=== PATIENT | female | born 1985 | race African-American/Black ===

== ENCOUNTER 2016-12-19 22:25 | Emergency (ER) | payer OTHER ==
--- NOTE | ~2016-12-19 | CR63 ---
[facility] A Service of [facility] RADIOLOGY TEXT RESULTS PATIENT: JOEY MORALES LOCATION: CFTX : 89 UNIT #: [id number] AGE: [address]: Jorge Wahl MD SEX: F ORDER DR: [id number] [facility] [address] [place], [place] [address] [id number] E MR#: [id number] Acc #: [id number] NAME: JOEY MORALES : 1985 SEX: F STUDY DATE/TIME: 12/19/2016 22:13 UNIT: [facility] ROOM: STUDY DESCRIPTION: CR Chest 2 View Attending Physician: Jorge Wahl M.D. Ordering Physician: Jorge Wahl M.D. Primary Care Physician: [facility] MEDICAL IMAGING REPORT This report is preliminary unless electronic signature is present EXAM Chest x-ray 12/19 at 2213 INDICATIONS Shortness of air, cough and mid back pain for the last 3 days. History of smoking. COMPARISON 05/11/2007 FINDINGS PA and lateral examination of the chest upright shows a good expansion of the parenchyma with a normal distribution of the pulmonary vascularity. There is no indication of congestion, effusion, infiltrate, tumor, or nodular density. The pleural reflections and diaphragmatic contours are normal. The cardiac silhouette and mediastinal anatomy is within normal limits. IMPRESSION Normal chest. Dictated by... Zurdo Freeman Jr., M.D. THIS IS AN ELECTRONICALLY VERIFIED REPORT Zurdo Freeman Jr., M.D. at 12/20/2016 12:35 PM FERNANDO/wilbur TD: 12/20/2016 11:23 JOB #: [id number] MEDICAL IMAGING REPORT COPY
== END 2016-12-19 22:50 | disposition home or self-care (01) ==
LOC: CFTX 22:25
DX: R06.02 Shortness of breath (principal); R05 Cough; M54.6 Pain in thoracic spine; F17.200 Nicotine dependence, unspecified, uncomplicated; Z88.8 Allergy status to other drugs, medicaments and biological substances
CPT/HCPCS: 71020; 99284